=== PATIENT | male | born 1975 | race Caucasian/White ===

== ENCOUNTER → 2017-12-10 | Outpatient (CLI) | payer OTHER ==
--- NOTE | 2017-12-10 09:16 | RADRPT ---
EXAM DATE/TIME: 12/10/2017 07:40 [place] COMPARISON: No previous studies available for comparison. INDICATIONS : Medial knee pain with swelling with history of prior surgery. MEDICAL HISTORY : None. SURGICAL HISTORY : Rt knee ENCOUNTER: Subsequent ACUITY: 2 weeks PAIN SCORE: 3/10 LOCATION: Right medial knee TECHNIQUE: Multiplanar, multisequence MRI examination was performed without contrast. FINDINGS: There is a nondisplaced tear involving the body and posterior horn the medial meniscus with some asso ciated mucoid degeneration. There is also a tear the anterior and posterior horn of the lateral menis cus with thinning of the meniscus possibly related to a prior partial meniscectomy. There is a report ed history of knee surgery. The anterior and posterior cruciate ligaments are intact. Medial and lateral collateral ligaments are intact. No bone contusion. There is a small joint effusion. There is mild osteoarthritis with articu lar cartilage thinning and early osteophyte formation. There is a small Freedman's cyst. CONCLUSION: 1. Nondisplaced tear involving the body and posterior horn medial meniscus. 2. Abnormal signal in anterior posterior horn lateral meniscus characteristic of nondisplaced tear wi th possible prior partial meniscectomy laterally. 3. Small joint effusion. Early changes of osteoarthritis. Small Freedman cyst. Santiago Pierson MD on December 10, 2017 at 9:07 Board Certified Radiologist. This report was verified electronically.
== END ==
LOC: HRAD 07:03
PROVIDERS: ATTEND Orthopaedic Surgery Sports Medicine
DX: M25.562 Pain in left knee (principal)
CPT/HCPCS: 73721